=== PATIENT | female | born 1965 | race Caucasian/White ===

== ENCOUNTER 2016-12-06 09:45 | Emergency (ER) | payer BC ==
[2016-12-06 09:57] VITALS: BP 135/80; PULSE 89; RESP 20; TEMP 97.9
--- NOTE | 2016-12-06 10:29 | ED ---
General Adult HPI - General Chief complaint: Abdominal Pain Stated complaint: left side pain Time Seen by Provider: 12/06/16 10:05 Source: patient Mode of arrival: ambulatory Limitations: no limitations - History of Present Illness Initial comments: 51-year-old female having flank pain on the left for 2 days. States that it's sharp seems somewhat worse when she moves but also the skin is sensitive. She' s had no outbreak or rash. Previous hernia surgery she states that the measures were concerned she has torn up. She has had some back disease and arthritis - Related Data Home Medications Medication Instructions Recorded Confirmed Lisinopril [Zestril] 20 mg PO HS 04/22/14 12/06/16 Acetaminophen Tab [Tylenol Tab] 325 mg PO Q6H PRN 01/03/16 12/06/16 Previous Rx's Medication Instructions Recorded Acyclovir [Zovirax] 800 mg PO TID #21 tab 12/06/16 Allergies Allergy/AdvReac Type Severity Reaction Status Date / Time acetaminophen [From Lortab] Allergy Migraines, Verified 12/06/16 09:57 dizziness,nausea cetirizine HCl [From Zyrtec] Allergy Migraines, Verified 12/06/16 09:57 dizziness, nausea codeine Allergy Migraines, Verified 12/06/16 09:57 dizziness, nausea fexofenadine HCl Allergy Migraines, Verified 12/06/16 09:57 [From Bridgette] dizziness, nausea hydrocodone bitartrate Allergy migraines, Verified 12/06/16 09:57 [From Lortab] dizziness, nausea hydromorphone HCl Allergy Migraines, Verified 12/06/16 09:57 [From Dilaudid] dizziness, nausea hydroxyzine Allergy Migraines, Verified 12/06/16 09:57 dizziness, nausea loratadine [From Claritin] Allergy Migraines, Verified 12/06/16 09:57 nausea,dizziness meperidine HCl [From Demerol] Allergy Migraines, Verified 12/06/16 09:57 dizziness, nausea morphine Allergy Migraines,d Verified 12/06/16 09:57 [place]fe oxycodone [Oxycodone] Allergy Migraines, Verified 12/06/16 09:57 dizziness, nausea procaine [Procaine] Allergy Migraines,d Verified 12/06/16 09:57 izziness,na usea propoxyphene napsylate Allergy Migraines,dizziness, Verified 12/06/16 09:57 [From Darvocet-N 100] nausea pseudoephedrine HCl Allergy Migraines, Verified 12/06/16 09:57 [From Sudafed] dizziness, nausea Review of Systems ROS Statement: Those systems with pertinent positive or pertinent negative responses have been documented in the HPI. ROS Other: All systems not noted in ROS Statement are negative. Constitutional: Denies: fever, chills Eyes: Denies: eye discharge ENT: Denies: throat pain Respiratory: Denies: cough Cardiovascular: Denies: chest pain Gastrointestinal: Reports: abdominal pain. Denies: nausea, vomiting, diarrhea Genitourinary: Denies: urgency, frequency, hematuria Musculoskeletal: Denies: back pain Skin: Denies: rash Neurological: Denies: headache Psychiatric: Denies: anxiety Hematological/Lymphatic: Denies: easy bleeding, easy bruising Past Medical History Past Medical History: Hypertension Additional Past Medical History / Comment(s): Past hx. of GERD, States she has a fatty liver & states she should take synthroid but refuses because it makes her sick. History of Any Multi-Drug Resistant Organisms: None Reported Past Surgical History: Breast Surgery, Hernia Repair, Hysterectomy, Orthopedic Surgery Additional Past Surgical History / Comment(s): Pancho fundoplication in 2008, R & L knee arthroscopy, L breast bx., EGD, colonoscopy. Past Anesthesia/Blood Transfusion Reactions: No Reported Reaction Past Psychological History: No Psychological Hx Reported Smoking Status: Never smoker Past Alcohol Use History: None Reported Past Drug Use History: None Reported - Past Family History Mother Family Medical History: No Reported History General Exam Limitations: no limitations General appearance: alert Head exam: Present: atraumatic Eye exam: Present: PERRL, EOMI ENT exam: Present: normal oropharynx, mucous membranes moist, TM's normal bilaterally Respiratory exam: Present: normal lung sounds bilaterally Cardiovascular Exam: Present: regular rate, normal heart sounds GI/Abdominal exam: Present: soft, tenderness (Tenderness left lower quadrant appears to be a little bulging at the medial border of the mesh) Neurological exam: Present: alert, CN II-XII intact Psychiatric exam: Present: normal affect, normal mood Skin exam: Present: warm, dry, other (No rash but some hyperesthesia along the left flank anteriorly) Course Vital Signs 12/06/16 09:54 Temperature 97.9 F Pulse Rate 89 Respiratory 20 Rate Blood Pressure 135/80 O2 Sat by Pulse 99 Oximetry Medical Decision Making - Medical Decision Making X-ray shows mild and platelets bundled ecchymosis throughout the in mild facet arthropathy in the lower lumbar spine no vertebral compression collapse. Trace grade 1 anterolisthesis at L4-L5 on a degenerative basis. Lab work and urine is satisfactory my concern is that could be an early shingles prior to the outbreak of a rash she also has some tenderness at the medial inferior portion of the mesh with questionable bulging this could be a strain versus loosening of the mesh she needs to follow-up with her surgeon regarding this. - Lab Data Result diagrams: 12/06/16 10:15 12/06/16 10:15 Lab Results 12/06/16 12/06/16 12/06/16 Range/Units 10:15 10:15 10:45 WBC 4.6 (3.8-10.6) k/uL RBC 4.66 (3.80-5.40) m/uL Hgb 14.3 (11.4-16.0) gm/dL Hct 44.2 (34.0-46.0) % MCV 94.9 (80.0-100.0) fL MCH 30.6 (25.0-35.0) pg MCHC 32.3 (31.0-37.0) g/dL RDW 13.2 (11.5-15.5) % Plt Count 229 (150-450) k/uL Neutrophils % 67 % Lymphocytes % 20 % Monocytes % 8 % Eosinophils % 3 % Basophils % 1 % Neutrophils # 3.1 (1.3-7.7) k/uL Lymphocytes # 0.9 L (1.0-4.8) k/uL Monocytes # 0.4 (0-1.0) k/uL Eosinophils # 0.1 (0-0.7) k/uL Basophils # 0.0 (0-0.2) k/uL Sodium 141 (137-145) mmol/L Potassium 4.5 (3.5-5.1) mmol/L Chloride 105 (98-107) mmol/L Carbon Dioxide 26 (22-30) mmol/L Anion Gap 10 mmol/L BUN 17 (7-17) mg/dL Creatinine 0.97 (0.52-1.04) mg/dL Est GFR (MDRD) Af Amer >60 (>60 ml/min/1.73 sqM) Est GFR (MDRD) Non-Af >60 (>60 ml/min/1.73 sqM) Glucose 133 H (74-99) mg/dL Calcium 9.7 (8.4-10.2) mg/dL Urine Color Yellow Urine Appearance Clear (Clear) Urine pH 5.0 (5.0-8.0) Ur Specific Brunson 1.020 (1.001-1.035) Urine Protein Negative (Negative) Urine Glucose (UA) Negative (Negative) Urine Ketones Negative (Negative) Urine Blood Negative (Negative) Urine Nitrate Negative (Negative) Urine Bilirubin Negative (Negative) Urine Urobilinogen <2.0 (<2.0) mg/dL Ur Leukocyte Esterase Negative (Negative) Disposition Clinical Impression: Flank pain Disposition: HOME SELF-CARE Condition: Good Additional Instructions: Warm compresses use Tylenol and follow-up with her doctor and surgeon Prescriptions: Acyclovir [Zovirax] 800 mg PO TID #21 tab Time of Disposition: 11:25
[2016-12-06 10:53] LABS: Basophils % (A) 1 %; CH 31.4; CHCM 33.3; Eosinophils # (A) 0.1 k/uL (0-0.7); Eosinophils % (A) 3 %; HCT 44.2 % (34.0-46.0); HDW 2.55; HGB 14.3 gm/dL (11.4-16.0); Luc # (Auto) 0.08; Luc % (Auto) 2; Lymphocytes # (A) 0.9 k/uL (1.0-4.8); Lymphocytes % (A) 20 %; MCH 30.6 pg (25.0-35.0); MCHC 32.3 g/dL (31.0-37.0); MCV 94.9 fL (80.0-100.0); Mean Platelet Volume 9.9; Monocytes # (A) 0.4 k/uL (0-1.0); Monocytes % (A) 8 %; Neutrophils # (A) 3.1 k/uL (1.3-7.7); Neutrophils % (A) 67 %; RBC 4.66 m/uL (3.80-5.40); RDW 13.2 % (11.5-15.5); WBC 4.6 k/uL (3.8-10.6); WBC (Perox) 4.83
[2016-12-06 11:15] LABS: Anion Gap 10 mmol/L; Blood Urea Nitrogen 17 mg/dL (7-17); Calcium 9.7 mg/dL (8.4-10.2); Carbon Dioxide 26 mmol/L (22-30); Chloride 105 mmol/L (98-107); Glucose 133 mg/dL (74-99); Non-African American GFR(MDRD) >60 (>60 ml/min/1.73 sqM); Potassium 4.5 mmol/L (3.5-5.1); Sodium 141 mmol/L (137-145)
[2016-12-06 11:18] LABS: Appearance,Urine Clear (Clear); Bilirubin,Urine Negative (Negative); Glucose,Urine (UA) Negative (Negative); Ketones,Urine Negative (Negative); Leukocyte Esterase,Urine Negative (Negative); Nitrite,Urine Negative (Negative); Protein,Urine Negative (Negative); UA Billing (MACRO vs. MICRO) CHEM; Urobilinogen,Urine <2.0 mg/dL (<2.0)
--- NOTE | 2016-12-06 11:20 | XR ---
EXAMINATION TYPE: XR lumbar spine 2 or 3V DATE OF EXAM: 12/06/2016 10:47 AM COMPARISON: 04/30/2010 HISTORY: 51-year-old female with left flank pain TECHNIQUE: 3 views FINDINGS: 5 lumbar type vertebral bodies. Mild scattered endplate spondylosis throughout and mild facet arthrop athy mid to lower lumbar spine. Vertebral body heights are preserved. There is trace grade 1 anteroli sthesis at L4-L5. Cholecystectomy clips. IMPRESSION: Mild endplate spondylosis throughout and mild facet arthropathy in the lower lumbar spine. No vertebr al compression collapse. Trace grade 1 anterolisthesis at L4-L5 on a degenerative basis.
[2016-12-06] MEDS ORDERED: KETOROLAC 60 MG/2 ML VIAL IM STA (11:21)
== END 2016-12-06 11:34 | disposition home or self-care (01) ==
LOC: EC 09:45
DX: R10.9 Unspecified abdominal pain (principal); R20.3 Hyperesthesia; I10 Essential (primary) hypertension; Z79.899 Other long term (current) drug therapy; Z88.5 Allergy status to narcotic agent; Z88.6 Allergy status to analgesic agent; Z88.8 Allergy status to other drugs, medicaments and biological substances; Z88.4 Allergy status to anesthetic agent
CPT/HCPCS: 36415; 80048; 85025; 81003; 72100; 99284; 96372; J1885

== ENCOUNTER → 2017-02-02 | Outpatient (CLI) | payer BC ==
[2017-02-02 08:51] LABS: Basophils # (A) 0.1 k/uL (0-0.2); Basophils % (A) 1 %; CH 31.4; CHCM 32.2; Eosinophils # (A) 0.2 k/uL (0-0.7); Eosinophils % (A) 4 %; HCT 45.3 % (34.0-46.0); HDW 2.45; HGB 14.2 gm/dL (11.4-16.0); Luc # (Auto) 0.15; Luc % (Auto) 3; Lymphocytes # (A) 1.2 k/uL (1.0-4.8); Lymphocytes % (A) 22 %; MCH 30.6 pg (25.0-35.0); MCHC 31.3 g/dL (31.0-37.0); MCV 97.8 fL (80.0-100.0); Mean Platelet Volume 9.4; Monocytes # (A) 0.3 k/uL (0-1.0); Monocytes % (A) 5 %; Neutrophils # (A) 3.7 k/uL (1.3-7.7); Neutrophils % (A) 66 %; RBC 4.63 m/uL (3.80-5.40); RDW 12.9 % (11.5-15.5); WBC 5.7 k/uL (3.8-10.6); WBC (Perox) 5.46
[2017-02-02 09:05] LABS: ALT 45 U/L (9-52); AST 36 U/L (14-36); Alkaline Phosphatase 87 U/L (38-126); Anion Gap 11 mmol/L; Blood Urea Nitrogen 16 mg/dL (7-17); Calcium 9.5 mg/dL (8.4-10.2); Carbon Dioxide 26 mmol/L (22-30); Chloride 106 mmol/L (98-107); Cholesterol 206 mg/dL (<200); Glucose 135 mg/dL (74-99); HDL Cholesterol 53 mg/dL (40-60); Non-African American GFR(MDRD) 55 (>60 ml/min/1.73 sqM); Potassium 4.1 mmol/L (3.5-5.1); Sodium 143 mmol/L (137-145); Total Bilirubin 0.8 mg/dL (0.2-1.3); Total Protein 6.6 g/dL (6.3-8.2); Triglycerides 189 mg/dL (<150)
[2017-02-02 09:44] LABS: Hepatitis C Virus IgG Index 0.03
[2017-02-02 09:49] LABS: Hepatitis C Virus IgG Ab Negative (Negative)
[2017-02-02 12:13] LABS: Hemoglobin A1C 6.1 % (4.2-6.1)
[2017-02-02 16:06] LABS: ANA w/Reflex to Titer NEGATIVE (NEGATIVE)
== END ==
LOC: LABWHC1 08:22
PROVIDERS: ATTEND Family Medicine
DX: I10 Essential (primary) hypertension (principal); Z72.89 Other problems related to lifestyle; R73.09 Other abnormal glucose; E78.2 Mixed hyperlipidemia; E55.9 Vitamin D deficiency, unspecified
CPT/HCPCS: 36415; 80053; 80061; 82306; 83036; 84443; 85025; 86038; 86803

== ENCOUNTER → 2017-04-02 | Outpatient (CLI) | payer BC ==
--- NOTE | 2017-04-06 07:28 | MM ---
Reason for exam: screening (asymptomatic). Last mammogram was performed 2 years ago. History: Patient is postmenopausal and is nulliparous. Family history of breast cancer in maternal aunt and premenopausal breast cancer in maternal grandmother at age 30. Benign stereotactic core biopsy of the left breast, June 28, 2003. Cyst aspiration of the right breast. Core biopsy of the left breast. Excisional biopsy of the left breast. Took hormonal contraceptives for 6 months beginning at age 34. Took estrogen for 8 years beginning at age 36. Physical Findings: A clinical breast exam by your physician is recommended on an annual basis and results should be correlated with mammographic findings. MG 3D Screening Mammo W/Cad Bilateral CC and MLO view(s) were taken. Prior study comparison: March 20, 2015, bilateral MG diagnostic mammo w CAD VIOLET. March 19, 2014, bilateral digital screening mammo w/CAD. The breast tissue is almost entirely fat. There is chronic nodularity bilaterally. No significant changes when compared with prior studies. ASSESSMENT: Negative, BI-RAD 1 RECOMMENDATION: Routine screening mammogram of both breasts in 1 year.
== END | disposition home or self-care (01) ==
LOC: RADMAMWWP 14:18
PROVIDERS: ATTEND Obstetrics & Gynecology
DX: Z12.31 Encounter for screening mammogram for malignant neoplasm of breast (principal)
CPT/HCPCS: 77063; G0202

== ENCOUNTER → 2017-05-19 | Outpatient (CLI) | payer BC ==
--- NOTE | 2017-05-21 11:11 | ECHOF ---
Referral Reason:R60.9 edeman I10 htn MEASUREMENTS -------- HEIGHT: 154.9 cm WEIGHT: 125.2 kg BP: 140/72 RVIDd: 2.1 cm (< 3.3) IVSd: 1.2 cm (0.6 - 1.1) LVIDd: 4.2 cm (3.9 - 5.3) LVPWd: 1.3 cm (0.6 - 1.1) IVSs: 1.6 cm LVIDs: 3.2 cm LVPWs: 1.6 cm LAESV Index (A-L): 8.76 ml/m Ao Diam: 3.1 cm (2.0 - 3.7) AV Cusp: 1.8 cm (1.5 - 2.6) LA Diam: 3.2 cm (2.7 - 3.8) MV EXCURSION: 21.800 mm (> 18.000) MV EF SLOPE: 173 mm/s (70 - 150) EPSS: 1.1 cm MV E Jack: 0.52 m/s MV DecT: 182 ms MV A Jack: 0.53 m/s MV E/A Ratio: 0.99 FINDINGS -------- Sinus rhythm. This was a technically difficult study with suboptimal views. Patient refused Definity. There is mild concentric left ventricular hypertrophy. Overall left ventricular systolic function is low-normal with, an EF between 50 - 55 %. The right ventricle is normal in size and function. Normal LA size by volume 22+/-6 ml/m2. The right atrium is normal in size. Aortic valve is trileaflet and is mildly thickened. There is no evidence of aortic regurgitation. There is no evidence of aortic stenosis. The mitral valve leaflets are mildly thickened. There is trace to mild mitral regurgitation. Trace tricuspid regurgitation present. There is no evidence of pulmonary hypertension. The right ventricular systolic pressure, as measured by Doppler, is {RVSP}. The pulmonic valve was not well visualized. The aortic root size is normal. IVC Not well visulized. The pericardium is normal. There is no pericardial effusion. CONCLUSIONS -------- 1. Sinus rhythm. 2. Trace tricuspid regurgitation present. 3. There is no evidence of pulmonary hypertension. 4. The right ventricular systolic pressure, as measured by Doppler, is {RVSP}. 5. The pulmonic valve was not well visualized. 6. The aortic root size is normal. 7. IVC Not well visulized. 8. There is no pericardial effusion. 9. This was a technically difficult study with suboptimal views. 10. Patient refused Definity. 11. There is mild concentric left ventricular hypertrophy. 12. Overall left ventricular systolic function is low-normal with, an EF between 50 - 55 %. 13. Normal LA size by volume 22+/-6 ml/m2. 14. Aortic valve is trileaflet and is mildly thickened. 15. The mitral valve leaflets are mildly thickened. 16. There is trace to mild mitral regurgitation. EXTENDED INSURANCE CLERK: Quang Parker RDCS
== END | disposition home or self-care (01) ==
LOC: RADECHMAIN 12:44
PROVIDERS: ATTEND Family Medicine
DX: I08.3 Combined rheumatic disorders of mitral, aortic and tricuspid valves (principal); I10 Essential (primary) hypertension
CPT/HCPCS: 93306

== ENCOUNTER → 2018-05-03 | Outpatient (CLI) | payer BC ==
--- NOTE | 2018-05-04 07:11 | MM ---
Reason for exam: screening (asymptomatic). Last mammogram was performed 1 year and 1 month ago. History: Patient is postmenopausal and is nulliparous. Family history of breast cancer in maternal aunt and premenopausal breast cancer in maternal grandmother at age 30. Benign stereotactic core biopsy of the left breast, June 28, 2003. Cyst aspiration of the right breast. Core biopsy of the left breast. Excisional biopsy of the left breast. Took hormonal contraceptives for 6 months beginning at age 34. Took estrogen for 8 years beginning at age 36. Physical Findings: A clinical breast exam by your physician is recommended on an annual basis and results should be correlated with mammographic findings. MG Screening Mammo w CAD Bilateral CC and MLO view(s) were taken. XCCM view(s) were taken of the left breast. Prior study comparison: April 02, 2017, bilateral MG 3d screening mammo w/cad. March 20, 2015, bilateral MG diagnostic mammo w CAD VIOLET. There are scattered fibroglandular densities. No suspicious abnormality. No significant changes when compared with prior studies. ASSESSMENT: Negative, BI-RAD 1 RECOMMENDATION: Routine screening mammogram of both breasts in 1 year.
== END ==
LOC: RADMAMWWP 08:56
PROVIDERS: ATTEND Obstetrics & Gynecology
DX: Z12.31 Encounter for screening mammogram for malignant neoplasm of breast (principal); Z80.3 Family history of malignant neoplasm of breast
CPT/HCPCS: 77067

== ENCOUNTER → 2018-06-21 | Outpatient (CLI) | payer BC ==
[2018-06-21 08:38] LABS: Basophils % (A) 1 %; Eosinophils # (A) 0.1 k/uL (0-0.7); Eosinophils % (A) 3 %; HCT 45.4 % (34.0-46.0); HGB 14.5 gm/dL (11.4-16.0); Lymphocytes # (A) 1.4 k/uL (1.0-4.8); Lymphocytes % (A) 26 %; MCH 29.8 pg (25.0-35.0); MCHC 31.9 g/dL (31.0-37.0); MCV 93.6 fL (80.0-100.0); Mean Platelet Volume 8.5; Monocytes # (A) 0.4 k/uL (0-1.0); Monocytes % (A) 7 %; Neutrophils # (A) 3.3 k/uL (1.3-7.7); Neutrophils % (A) 61 %; Platelet Count 224 k/uL (150-450); RBC 4.85 m/uL (3.80-5.40); WBC 5.4 k/uL (3.8-10.6)
[2018-06-21 09:16] LABS: T4, Free (Free Thyroxine) 1.01 ng/dL (0.78-2.19)
[2018-06-21 17:38] LABS: Hemoglobin A1C 6.2 % (4.0-6.0)
== END | disposition home or self-care (01) ==
LOC: LABWHC1 08:10
PROVIDERS: ATTEND Family Medicine
DX: E78.2 Mixed hyperlipidemia (principal); I10 Essential (primary) hypertension; R73.9 Hyperglycemia, unspecified; E03.9 Hypothyroidism, unspecified
CPT/HCPCS: 36415; 80061; 83036; 84439; 84443; 85025

== ENCOUNTER → 2018-09-23 | Outpatient (CLI) | payer BC ==
--- NOTE | 2018-09-23 15:12 | US ---
LOWER EXTREMITY VENOUS INSUFFICIENCY SIDE PERFORMED: Bilateral 1) Color flow is present and patency is documented in the following vessels. No DVT or SVT is noted . EIV Common Femoral Vein Deep Femoral Vein Femoral Vein Popliteal Vein Proximal Calf Veins Greater Saph Vein Upper Small Saph Vein 2) There is venous reflux noted at the following venous levels: RT: EIV, LT: EIV, GSV, DFV Right pop vessels difficult to see due to edema. IMPRESSION: 1. Lower extremity venous reflux within left and right iliac veins, left greater saphenous and deep f emoral veins. 2. Edema within the right lower extremity limits vascular evaluation. .
--- NOTE | 2018-09-27 10:21 | P.ARTDOP ---
Arterial Doppler LOWER EXTREMITY ARTERIAL DOPPLER: DATE OF SERVICE: 09/23/18 Reason for study: Pain and swelling both lower legs. Doppler waveforms: Multiphasic bilaterally throughout. Pulse volume recording: Blunting distally at the left digits. Pressure gradients: None. Ankle-brachial indices: Greater than 1 bilaterally. Toe pressures: 128 on the right, 120 on the left Impression: Probably normal study..
== END | disposition home or self-care (01) ==
LOC: RADUSWWP 11:34
PROVIDERS: ATTEND Internal Medicine Infectious Disease
DX: I87.2 Venous insufficiency (chronic) (peripheral) (principal); I89.0 Lymphedema, not elsewhere classified
CPT/HCPCS: 93923; 93970

== ENCOUNTER 2019-08-02 08:21 | Emergency (ER) | payer BC ==
[2019-08-02 08:30] VITALS: TEMP 97.7
--- NOTE | 2019-08-02 08:47 | ED ---
General Adult HPI - General Chief complaint: Shortness of Breath Stated complaint: JAMES Time Seen by Provider: 08/02/19 08:25 Source: patient, RN notes reviewed Mode of arrival: ambulatory Limitations: no limitations - History of Present Illness Initial comments: This a 53-year-old female presents to the emergency department with a past medical history significant for which she states his heart valve problems. Patient states she woke up this morning at 6:00 and was short of breath patient states it was worse with some exertion. Patient states she had no chest pain she didn't have any palpitations this morning but she states she gets palpitations quite regularly. Patient denies any fever or chills. Patient states she has a little upper respiratory infection she has a little bit of runny nose. Patient denies any sore throat. Patient denies any significant coughing. Patient denies any abdominal pain patient denies nausea vomiting diarrhea. Patient denies any increased swelling. Patient denies any calf tenderness. - Related Data Home Medications Medication Instructions Recorded Confirmed Lisinopril [Zestril] 20 mg PO HS 04/22/14 08/02/19 Acetaminophen [Tylenol 8 Hour] 1,300 mg PO Q8H PRN 08/02/19 08/02/19 Metoprolol Tartrate [Lopressor] 12.5 mg PO DAILY 08/02/19 08/02/19 Allergies Allergy/AdvReac Type Severity Reaction Status Date / Time cetirizine HCl [From Zyrtec] Allergy Migraines, Verified 08/02/19 08:38 dizziness, nausea codeine Allergy Migraines, Verified 08/02/19 08:38 dizziness, nausea fexofenadine HCl Allergy Migraines, Verified 08/02/19 08:38 [From Bridgette] dizziness, nausea hydrocodone bitartrate Allergy migraines, Verified 08/02/19 08:38 [From Lortab] dizziness, nausea hydromorphone HCl Allergy Migraines, Verified 08/02/19 08:38 [From Dilaudid] dizziness, nausea hydroxyzine Allergy Migraines, Verified 08/02/19 08:38 dizziness, nausea loratadine [From Claritin] Allergy Migraines, Verified 08/02/19 08:38 nausea,dizziness meperidine HCl [From Demerol] Allergy Migraines, Verified 08/02/19 08:38 dizziness, nausea morphine Allergy Migraines,d Verified 08/02/19 08:38 izziness,na usea oxycodone [Oxycodone] Allergy Migraines, Verified 08/02/19 08:38 dizziness, nausea procaine [Procaine] Allergy Migraines,d Verified 08/02/19 08:38 izziness,na usea propoxyphene napsylate Allergy Migraines,dizziness, Verified 08/02/19 08:38 [From Darvocet-N 100] nausea pseudoephedrine HCl Allergy Migraines, Verified 08/02/19 08:38 [From Sudafed] dizziness, nausea Review of Systems ROS Statement: Those systems with pertinent positive or pertinent negative responses have been documented in the HPI. ROS Other: All systems not noted in ROS Statement are negative. Past Medical History Past Medical History: Hypertension Additional Past Medical History / Comment(s): Past hx. of GERD, States she has a fatty liver & states she should take synthroid but refuses because it makes her sick. History of Any Multi-Drug Resistant Organisms: None Reported Past Surgical History: Breast Surgery, Hernia Repair, Hysterectomy, Orthopedic Surgery Additional Past Surgical History / Comment(s): Pancho fundoplication in 2008, R & L knee arthroscopy, L breast bx., EGD, colonoscopy. Past Anesthesia/Blood Transfusion Reactions: No Reported Reaction Past Psychological History: No Psychological Hx Reported Smoking Status: Never smoker Past Alcohol Use History: None Reported Past Drug Use History: None Reported - Past Family History Mother Family Medical History: No Reported History General Exam - General Exam Comments Initial Comments: GENERAL: Patient is well-developed and well-nourished. Patient is nontoxic and well-hyd rated and is in no acute distress. ENT: Neck is soft and supple. No significant lymphadenopathy is noted. Oropharynx is clear. Moist mucous membranes. Neck has full range of motion without elicit ing any pain. EYES: The sclera were anicteric and conjunctiva were pink and moist. Extraocular m ovements were intact and pupils were equal round and reactive to light. Eyelids were unremarkable. PULMONARY: Unlabored respirations. Good breath sounds bilaterally. No audible rales rhonchi or wheezing was noted. CARDIOVASCULAR: There is a regular rate and rhythm without any murmurs gallops or rubs. ABDOMEN: Soft and nontender with normal bowel sounds. No palpable organomegaly was noted. There is no palpable pulsatile mass. SKIN: Skin is clear with no lesions or rashes and otherwise unremarkable. NEUROLOGIC: Patient is alert and oriented x3. Cranial nerves II through XII are grossly intact. Motor and sensory are also intact. Normal speech, volume and content. Symmetrical smile. MUSCULOSKELETAL: Normal extremities with adequate strength and full range of motion. No lower extremity swelling or edema. No calf tenderness. LYMPHATICS: No significant lymphadenopathy is noted PSYCHIATRIC: Normal psychiatric evaluation. Limitations: no limitations Course Vital Signs 08/02/19 08/02/19 08/02/19 08:27 09:04 11:01 Temperature 97.7 F Pulse Rate 94 70 Respiratory 18 20 Rate Blood Pressure 127/85 O2 Sat by Pulse 99 Oximetry 08/02/19 11:11 Temperature Pulse Rate 91 Respiratory Rate Blood Pressure O2 Sat by Pulse Oximetry Medical Decision Making - Medical Decision Making EKG shows normal sinus rhythm at 83 bpm IA interval is 148 QRS is 76 QT interval 376 QTC is 441 per patient's EKG shows no ST segment elevation or depression. Chest x-ray shows no acute abnormality. I observe the patient sleeping across the throughout her ED stay and at no time did she appear to be having any difficulty breathing. I went back in twice to listen to her lungs both times were clear did try a breathing treatment 1 and she noted a slight improvement. Patient states she feels much better now than she did when she came in. - Lab Data Result diagrams: 08/02/19 08:48 08/02/19 08:48 Lab Results 08/02/19 08/02/19 08/02/19 Range/Units 08:48 08:48 08:48 WBC 4.4 (3.8-10.6) k/uL RBC 4.21 (3.80-5.40) m/uL Hgb 13.7 (11.4-16.0) gm/dL Hct 41.6 (34.0-46.0) % MCV 98.7 (80.0-100.0) fL MCH 32.6 (25.0-35.0) pg MCHC 33.0 (31.0-37.0) g/dL RDW 14.0 (11.5-15.5) % Plt Count 209 (150-450) k/uL Neutrophils % 60 % Lymphocytes % 26 % Monocytes % 7 % Eosinophils % 3 % Basophils % 1 % Neutrophils # 2.7 (1.3-7.7) k/uL Lymphocytes # 1.1 (1.0-4.8) k/uL Monocytes # 0.3 (0-1.0) k/uL Eosinophils # 0.1 (0-0.7) k/uL Basophils # 0.1 (0-0.2) k/uL PT (9.0-12.0) sec INR (<1.2) APTT (22.0-30.0) sec D-Dimer (<0.60) mg/L FEU Sodium 139 (137-145) mmol/L Potassium 4.4 (3.5-5.1) mmol/L Chloride 104 (98-107) mmol/L Carbon Dioxide 27 (22-30) mmol/L Anion Gap 8 mmol/L BUN 22 H (7-17) mg/dL Creatinine 0.95 (0.52-1.04) mg/dL Est GFR (CKD-EPI)AfAm 78 (>60 ml/min/1.73 sqM) Est GFR (CKD-EPI)NonAf 68 (>60 ml/min/1.73 sqM) Glucose 146 H (74-99) mg/dL Calcium 9.5 (8.4-10.2) mg/dL Magnesium 2.2 (1.6-2.3) mg/dL Total Bilirubin 0.8 (0.2-1.3) mg/dL AST 36 (14-36) U/L ALT 39 (9-52) U/L Alkaline Phosphatase 88 (38-126) U/L Troponin I (0.000-0.034) ng/mL NT-Pro-B Natriuret Pep 88 pg/mL Total Protein 6.8 (6.3-8.2) g/dL Albumin 4.0 (3.5-5.0) g/dL 08/02/19 08/02/19 08/02/19 Range/Units 08:48 08:48 08:48 WBC (3.8-10.6) k/uL RBC (3.80-5.40) m/uL Hgb (11.4-16.0) gm/dL Hct (34.0-46.0) % MCV (80.0-100.0) fL MCH (25.0-35.0) pg MCHC (31.0-37.0) g/dL RDW (11.5-15.5) % Plt Count (150-450) k/uL Neutrophils % % Lymphocytes % % Monocytes % % Eosinophils % % Basophils % % Neutrophils # (1.3-7.7) k/uL Lymphocytes # (1.0-4.8) k/uL Monocytes # (0-1.0) k/uL Eosinophils # (0-0.7) k/uL Basophils # (0-0.2) k/uL PT 10.0 (9.0-12.0) sec INR 0.9 (<1.2) APTT 24.5 (22.0-30.0) sec D-Dimer 0.27 (<0.60) mg/L FEU Sodium (137-145) mmol/L Potassium (3.5-5.1) mmol/L Chloride (98-107) mmol/L Carbon Dioxide (22-30) mmol/L Anion Gap mmol/L BUN (7-17) mg/dL Creatinine (0.52-1.04) mg/dL Est GFR (CKD-EPI)AfAm (>60 ml/min/1.73 sqM) Est GFR (CKD-EPI)NonAf (>60 ml/min/1.73 sqM) Glucose (74-99) mg/dL Calcium (8.4-10.2) mg/dL Magnesium (1.6-2.3) mg/dL Total Bilirubin (0.2-1.3) mg/dL AST (14-36) U/L ALT (9-52) U/L Alkaline Phosphatase (38-126) U/L Troponin I <0.012 (0.000-0.034) ng/mL NT-Pro-B Natriuret Pep pg/mL Total Protein (6.3-8.2) g/dL Albumin (3.5-5.0) g/dL Disposition Clinical Impression: Dyspnea Disposition: HOME SELF-CARE Condition: Good Instructions (If sedation given, give patient instructions): Dyspnea (ED) Is patient prescribed a controlled substance at d/c from ED?: No Referrals: Gia Coulter MD [Primary Care Provider] - 1-2 days Time of Disposition: 11:45
[2019-08-02 09:10] LABS: Basophils # (A) 0.1 k/uL (0-0.2); Basophils % (A) 1 %; Eosinophils # (A) 0.1 k/uL (0-0.7); Eosinophils % (A) 3 %; HCT 41.6 % (34.0-46.0); HGB 13.7 gm/dL (11.4-16.0); Lymphocytes # (A) 1.1 k/uL (1.0-4.8); Lymphocytes % (A) 26 %; MCH 32.6 pg (25.0-35.0); MCV 98.7 fL (80.0-100.0); Mean Platelet Volume 8.4; Monocytes # (A) 0.3 k/uL (0-1.0); Monocytes % (A) 7 %; Neutrophils # (A) 2.7 k/uL (1.3-7.7); Neutrophils % (A) 60 %; Platelet Count 209 k/uL (150-450); RBC 4.21 m/uL (3.80-5.40); WBC 4.4 k/uL (3.8-10.6)
[2019-08-02 09:21] LABS: INR 0.9 (<1.2); Partial Thromboplastin Time 24.5 sec (22.0-30.0)
--- NOTE | 2019-08-02 09:31 | XR ---
EXAMINATION TYPE: XR chest 2V DATE OF EXAM: 08/02/2019 COMPARISON: Prior chest x-ray 04/22/2014 HISTORY: Difficulty breathing, shortness of breath TECHNIQUE: Frontal and lateral views of the chest are obtained. FINDINGS: There is no focal air space opacity, pleural effusion, or pneumothorax seen. The cardiac silhouette size is within normal limits. The osseous structures are intact. IMPRESSION: No acute cardiopulmonary process.
[2019-08-02 09:32] LABS: Calcium 9.5 mg/dL (8.4-10.2); Magnesium 2.2 mg/dL (1.6-2.3); Potassium 4.4 mmol/L (3.5-5.1); Total Bilirubin 0.8 mg/dL (0.2-1.3); Total Protein 6.8 g/dL (6.3-8.2)
[2019-08-02] MEDS ORDERED: IPRATROPIUM-ALBUTEROL 3 ML NEB INHALATION STA (10:32)
[2019-08-02 12:09] VITALS: BP 127/77; PULSE 70; RESP 22
== END 2019-08-02 12:09 | disposition home or self-care (01) ==
LOC: EC 08:21
DX: R06.00 Dyspnea, unspecified (principal); R06.02 Shortness of breath; I10 Essential (primary) hypertension; Z79.899 Other long term (current) drug therapy; Z88.4 Allergy status to anesthetic agent; Z88.5 Allergy status to narcotic agent; Z88.8 Allergy status to other drugs, medicaments and biological substances
CPT/HCPCS: 36415; 71046; 80053; 83735; 83880; 84484; 85025; 85379; 85610; 85730; 93005; 94640; 99285

== ENCOUNTER 2020-01-13 08:01 | Emergency (ER) | payer BC ==
[2020-01-13] MEDS ORDERED: IPRATROPIUM-ALBUTEROL 3 ML NEB INHALATION STA ×2 (08:44→08:45)
[2020-01-13] MEDS ORDERED: methylPREDNISolone SOD SUCCI 125 MG/2 ML VIAL IM ONE (08:45)
--- NOTE | 2020-01-13 09:07 | XR ---
EXAMINATION TYPE: XR chest 2V DATE OF EXAM: 01/13/2020 HISTORY: pain. REFERENCE: Previous study dated 08/02/2019. FINDINGS: The lungs remain clear. Pleural spaces are clear. The heart is not enlarged. IMPRESSION: NO ACTIVE INTRATHORACIC DISEASE.
[2020-01-13 09:14] VITALS: PULSE 90
--- NOTE | 2020-01-13 09:31 | ED ---
Fever HPI - General Chief Complaint: Fever Stated Complaint: influenza A positive Time Seen by Provider: 01/13/20 08:15 Source: patient, RN notes reviewed, old records reviewed Mode of arrival: ambulatory Limitations: no limitations - History of Present Illness Initial Comments: Patient is a 34 rolled female presents emergency room today with wheezing and congestion over the past week. She is sinus with influenza on Wednesday of this week. She's been using decongestants. Patient reports that she seems to wheeze more and have worsening coughing. Patient states that she is a nonsmoker. History of asthma. Patient reports her cough is nonproductive. - Related Data Home Medications Medication Instructions Recorded Confirmed Lisinopril [Zestril] 20 mg PO HS 04/22/14 08/02/19 Acetaminophen [Tylenol 8 Hour] 1,300 mg PO Q8H PRN 08/02/19 08/02/19 Metoprolol Tartrate [Lopressor] 12.5 mg PO DAILY 08/02/19 08/02/19 Previous Rx's Medication Instructions Recorded Albuterol Inhaler [Ventolin Hfa 1 - 2 puff INHALATION RT-Q6H PRN 01/13/20 Inhaler] #1 inhaler Promethazine/Dextromethorphan 5 ml PO TID #120 ml 01/13/20 [Phenergan DM Syrup] predniSONE 50 mg PO DAILY #5 tablet 01/13/20 Allergies Allergy/AdvReac Type Severity Reaction Status Date / Time cetirizine HCl [From Zyrtec] Allergy Migraines, Verified 01/13/20 08:05 dizziness, nausea codeine Allergy Migraines, Verified 01/13/20 08:05 dizziness, nausea fexofenadine HCl Allergy Migraines, Verified 01/13/20 08:05 [From Bridgette] dizziness, nausea hydrocodone bitartrate Allergy migraines, Verified 01/13/20 08:05 [From Lortab] dizziness, nausea hydromorphone HCl Allergy Migraines, Verified 01/13/20 08:05 [From Dilaudid] dizziness, nausea hydroxyzine Allergy Migraines, Verified 01/13/20 08:05 dizziness, nausea loratadine [From Claritin] Allergy Migraines, Verified 01/13/20 08:05 nausea,dizziness meperidine HCl [From Demerol] Allergy Migraines, Verified 01/13/20 08:05 dizziness, nausea morphine Allergy Migraines,d Verified 01/13/20 08:05 izziness,na usea oxycodone [Oxycodone] Allergy Migraines, Verified 01/13/20 08:05 dizziness, nausea procaine [Procaine] Allergy Migraines,d Verified 01/13/20 08:05 izziness,na usea propoxyphene napsylate Allergy Migraines,dizziness, Verified 01/13/20 08:05 [From Darvocet-N 100] nausea pseudoephedrine HCl Allergy Migraines, Verified 01/13/20 08:05 [From Sudafed] dizziness, nausea Review of Systems ROS Statement: Those systems with pertinent positive or pertinent negative responses have been documented in the HPI. ROS Other: All systems not noted in ROS Statement are negative. Past Medical History Past Medical History: Hypertension Additional Past Medical History / Comment(s): Past hx. of GERD, States she has a fatty liver & states she should take synthroid but refuses because it makes her sick. History of Any Multi-Drug Resistant Organisms: None Reported Past Surgical History: Breast Surgery, Hernia Repair, Hysterectomy, Orthopedic Surgery Additional Past Surgical History / Comment(s): Pancho fundoplication in 2009, R & L knee arthroscopy, L breast bx., EGD, colonoscopy. Past Anesthesia/Blood Transfusion Reactions: No Reported Reaction Past Psychological History: No Psychological Hx Reported Smoking Status: Never smoker Past Alcohol Use History: None Reported Past Drug Use History: None Reported - Past Family History Mother Family Medical History: No Reported History General Exam - General Exam Comments Initial Comments: 54-year-old female. Alert and oriented 3. No significant distress. Limitations: no limitations General appearance: alert, in no apparent distress Head exam: Present: atraumatic, normocephalic, normal inspection Eye exam: Present: normal appearance, PERRL, EOMI. Absent: scleral icterus, conjunctival injection, periorbital swelling ENT exam: Present: normal exam, mucous membranes moist Neck exam: Present: normal inspection. Absent: tenderness, meningismus, lymphadenopathy Respiratory exam: Present: wheezes (minimal). Absent: normal lung sounds bilaterally, respiratory distress, rales, rhonchi, stridor Cardiovascular Exam: Present: regular rate, normal rhythm, normal heart sounds. Absent: systolic murmur, diastolic murmur, rubs, gallop, clicks GI/Abdominal exam: Present: soft, normal bowel sounds. Absent: distended, tenderness, guarding, rebound, rigid Extremities exam: Present: normal inspection, full ROM, normal capillary refill. Absent: tenderness, pedal edema, joint swelling, calf tenderness Back exam: Present: normal inspection Neurological exam: Present: alert, oriented X3, CN II-XII intact Psychiatric exam: Present: normal affect, normal mood Course Vital Signs 01/13/20 01/13/20 01/13/20 08:03 08:05 08:55 Temperature 98.0 F Pulse Rate 108 H 88 Respiratory 20 18 Rate Blood Pressure 136/84 O2 Sat by Pulse 96 Oximetry 01/13/20 09:10 Temperature Pulse Rate 90 Respiratory Rate Blood Pressure O2 Sat by Pulse Oximetry Disposition Clinical Impression: Influenza, Bronchitis Disposition: HOME SELF-CARE Condition: Good Instructions (If sedation given, give patient instructions): Acute Bronchitis (ED) Additional Instructions: Patient advised to follow-up with your primary care physician next week. Take Tylenol or Motrin for fever. Recommending continuing decongestants and using the cough syrup as prescribed. Starting the steroid tomorrow. Return to the ED if any alarming signs or symptoms occur. Prescriptions: Promethazine/Dextromethorphan [Phenergan DM Syrup] 5 ml PO TID #120 ml predniSONE 50 mg PO DAILY #5 tablet Albuterol Inhaler [Ventolin Hfa Inhaler] 1 - 2 puff INHALATION RT-Q6H PRN #1 inhaler PRN Reason: Cough Is patient prescribed a controlled substance at d/c from ED?: No Referrals: Matti Chun [Primary Care Provider] - 1-2 days Time of Disposition: 09:59
[2020-01-13 10:38] VITALS: BP 121/78; RESP 16; TEMP 99.1
== END 2020-01-13 10:37 | disposition home or self-care (01) ==
LOC: EC 08:01
DX: J11.1 Influenza due to unidentified influenza virus with other respiratory manifestations (principal); J20.9 Acute bronchitis, unspecified; I10 Essential (primary) hypertension; Z79.899 Other long term (current) drug therapy; Z88.8 Allergy status to other drugs, medicaments and biological substances; Z88.5 Allergy status to narcotic agent; Z88.4 Allergy status to anesthetic agent
CPT/HCPCS: 94640; 71046; 99284; 96372; J2930